=== PATIENT | female | born 1985 | race Hispanic/Latino ===

== ENCOUNTER 2020-09-09 17:03 | Emergency (ER) | payer MEDICARE, OTHER ==
[~2020-09-09] VITALS: Ht 157.5 cm; Wt 74.8 kg
[2020-09-09] MEDS ORDERED: CEFTRIAXONE 500 MG VIAL IM ONE (17:45)
[2020-09-09] MEDS ORDERED: ONDANSETRON HCL 4 MG ORAL DISINTEGRATING TAB PO ONE (17:45)
[2020-09-09] MEDS ORDERED: AZITHROMYCIN 250 MG TAB PO ONE (17:45)
[2020-09-09] MEDS ORDERED: METRONIDAZOLE 500 MG TAB PO ONE (17:45)
== END 2020-09-09 18:40 | disposition home or self-care (01) ==
LOC: ER 17:48
DX: R30.0 Dysuria (principal); A64 Unspecified sexually transmitted disease; F17.210 Nicotine dependence, cigarettes, uncomplicated
CPT/HCPCS: 99283; J0696; Q0162

== ENCOUNTER 2021-01-06 22:56 | Emergency (ER) | payer OTHER ==
[~2021-01-06] VITALS: Ht 157.5 cm; Wt 67.1 kg
[2021-01-06] MEDS ORDERED: IBUPROFEN 600 MG TAB PO STA (23:23)
[2021-01-06] MEDS ORDERED: BACTRIM DS TAB1 EACH PO (23:25)
[2021-01-06] MEDS ORDERED: IBUPROFEN600 MG PO (23:25)
[2021-01-06] MEDS ORDERED: TRIMETHOPRIM/SULFAMETHOXAZOLE 160-800 MG TAB PO ONE (23:30)
[2021-01-06] MEDS ORDERED: TRIMETHOPRIM/SULFAMETHOXAZOLE 160-800 MG TAB ONE (23:36)
[2021-01-06] MEDS ORDERED: IBUPROFEN 600 MG TAB ONE (23:36)
== END 2021-01-06 23:56 | disposition home or self-care (01) ==
LOC: ER 23:11
DX: L02.32 Furuncle of buttock (principal)
CPT/HCPCS: 99284